=== PATIENT | male | born 1970 | race Hispanic/Latino ===

== ENCOUNTER 2024-03-21 03:22 | Observation (INO) | payer OTHER ==
[2024-03-21] VITALS (11 sets, daily range): BP systolic 122–184; BP diastolic 67–119; PULSE 70–88; RESP 15–20; TEMP 97.3–98.7; O2SAT 96–100
[~2024-03-21] VITALS: Ht 165.1 cm; Wt 112.5 kg
[~2024-03-21 03:22] MED LIST: ASPIRIN EC81 MG PO; LABETALOL HCL100 MG PO; NIFEDIPINE ER30 M1 PO; PEPCID20 MG PO; PRAVASTATIN SOD10 MG PO
[2024-03-21] MEDS: FUROSEMIDE INJ 10 MG/ML 4 ML VIAL IV STA (03:42)
[2024-03-21] MEDS: HYDRALAZINE HCL 20 MG/ML VIAL IV STA (03:42)
[2024-03-21 03:59] LABS: BASOPHILS % 0.6 % (0.0-1.0); EOSINOPHILS # (AUTO) 0.3 (0.0-0.4); EOSINOPHILS % 3.8 % (0.0-6.0); HEMATOCRIT 42.7 % (38.2-49.6); LYMPHOCYTES # (AUTO) 1.4 (1.0-3.2); LYMPHOCYTES % 21.9 % (18.0-39.1); MEAN CORPUSCULAR HEMOGLOBIN 31.6 pg (28-32); MEAN CORPUSCULAR HGB CONC 32.8 g/dL (31-35); MEAN CORPUSCULAR VOLUME 96.4 fL (81-99); MONOCYTES # (AUTO) 0.7 (0.2-0.8); NEUTROPHILS # (AUTO) 4.2 (2.1-6.9); NEUTROPHILS % 63.4 % (38.7-80.0); RED BLOOD COUNT 4.43 x10e6/uL (4.3-5.7); RED CELL DISTRIBUTION WIDTH 14.5 % (11.7-14.4); WHITE BLOOD COUNT 6.57 x10e3/uL (4.8-10.8)
[2024-03-21 04:03] LABS: PLATELET COUNT 89 x10e3/uL (140-360)
[2024-03-21 04:09] LABS: AMPHETAMINES SCREEN,URINE NEGATIVE (NEGATIVE); BENZODIAZEPINES SCREEN,URINE NEGATIVE (NEGATIVE); CANNABINOIDS SCREEN,URINE NEGATIVE (NEGATIVE); COCAINE SCREEN,URINE NEGATIVE (NEGATIVE); METHADONE SCREEN, URINE NEGATIVE (NEGATIVE); OPIATES SCREEN,URINE NEGATIVE (NEGATIVE); PHENCYCLIDINE SCREEN,URINE NEGATIVE (NEGATIVE)
[2024-03-21 04:22] LABS: LIPASE 69 U/L (8-78)
[2024-03-21 04:23] LABS: ETHANOL < 10.0 mg/dL (0.0-10.0)
[2024-03-21 04:24] LABS: ANION GAP 14.6 mmol/L (8-16); BILIRUBIN,TOTAL 0.8 mg/dL (0.2-1.2); CALCIUM 9.2 mg/dL (8.4-10.2); CREATININE, SERUM 1.08 mg/dL (0.72-1.25); POTASSIUM 3.6 mmol/L (3.5-5.1)
[2024-03-21 04:30] LABS: TROPONIN I 0.086 ng/mL (0-0.300)
[2024-03-21] MEDS ORDERED: SODIUM CHLORIDE FLUSH 10 ML SYR INJ PRN (05:00)
[2024-03-21] MEDS ORDERED: HYDROCHLOROTHIA25 MG (09:53)
[2024-03-21] MEDS ORDERED: HYDROCODONE/APAP 5MG-325MG TAB PO PRN (10:45)
[2024-03-21] MEDS ORDERED: ONDANSETRON HCL INJ 2MG/ML 2ML 2 MG/ML VIAL IV PRN (10:45)
[2024-03-21] MEDS ORDERED: BISACODYL 10 MG SUPP PR PRN (10:45)
[2024-03-21] MEDS: HYDROCHLOROTHIAZIDE 25 MG TAB PO SCH (11:26)
[2024-03-21] MEDS: LOSARTAN POTASSIUM 25 MG TAB PO SCH (11:27)
[2024-03-21] MEDS: ACETAMINOPHEN 325 MG TAB PO PRN (11:27)
[2024-03-21 11:49] LABS: BILIRUBIN,URINE NEGATIVE (NEGATIVE); CLARITY,URINE CLEAR (CLEAR); COLOR,URINE YELLOW (YELLOW); GLUCOSE, URINE NEGATIVE (NEGATIVE); KETONES,URINE NEGATIVE (NEGATIVE); LEUKOCYTE ESTERASE ,URINE TRACE (NEGATIVE); NITRITE,URINE NEGATIVE (NEGATIVE); PH,URINE 5.5 (5 - 7); PROTEIN,URINE DIPSTICK NEGATIVE (NEGATIVE); URINE UROBILINOGEN 0.2 mg/dL (0.2 - 1)
[2024-03-21 12:09] LABS: BACTERIA,URINE MODERATE /HPF; EPITHELIAL CELLS,URINE FEW /LPF; RBC,URINE 0-5 /HPF (0-5)
[2024-03-21] MEDS ORDERED: HYDROCHLOROTHIAZIDE 25 MG TAB PO SCH (12:45)
[2024-03-21 13:10] LABS: TROPONIN I 0.073 ng/mL (0-0.300)
[2024-03-21 13:51] LABS: AMPHETAMINES SCREEN,URINE NEGATIVE (NEGATIVE); BENZODIAZEPINES SCREEN,URINE NEGATIVE (NEGATIVE); CANNABINOIDS SCREEN,URINE NEGATIVE (NEGATIVE); COCAINE SCREEN,URINE NEGATIVE (NEGATIVE); METHADONE SCREEN, URINE NEGATIVE (NEGATIVE); OPIATES SCREEN,URINE NEGATIVE (NEGATIVE); PHENCYCLIDINE SCREEN,URINE NEGATIVE (NEGATIVE)
[2024-03-21] MEDS: FUROSEMIDE INJ 10 MG/ML 2 ML VIAL IV SCH (13:51)
[2024-03-21] MEDS ORDERED: ENOXAPARIN SOD INJ 40 MG/0.4 ML SYR SC SCH (17:00)
[2024-03-21] MEDS: CLONIDINE HCL 0.1 MG TAB PO PRN (18:07)
[2024-03-21] MEDS: CARVEDILOL 12.5 MG TAB PO SCH (18:07)
[2024-03-21] MEDS: HYDRALAZINE HCL 20 MG/ML VIAL IV PRN (20:47)
[2024-03-22 01:22] VITALS: BP 151/86; PULSE 72; RESP 20; TEMP 98.1; O2SAT 98
[2024-03-22 05:55] VITALS: BP 149/91; PULSE 68; RESP 20; TEMP 98.5; O2SAT 98
[2024-03-22 06:43] LABS: BASOPHILS % 0.6 % (0.0-1.0); EOSINOPHILS # (AUTO) 0.3 (0.0-0.4); EOSINOPHILS % 4.2 % (0.0-6.0); HEMATOCRIT 40.3 % (38.2-49.6); HEMOGLOBIN 13.8 g/dL (14.0-18.0); LYMPHOCYTES # (AUTO) 1.6 (1.0-3.2); LYMPHOCYTES % 25.4 % (18.0-39.1); MEAN CORPUSCULAR HEMOGLOBIN 31.7 pg (28-32); MEAN CORPUSCULAR HGB CONC 34.2 g/dL (31-35); MEAN CORPUSCULAR VOLUME 92.4 fL (81-99); MONOCYTES # (AUTO) 0.8 (0.2-0.8); MONOCYTES % 13.2 % (4.4-11.3); NEUTROPHILS # (AUTO) 3.6 (2.1-6.9); NEUTROPHILS % 56.4 % (38.7-80.0); PLATELET COUNT 92 x10e3/uL (140-360); RED BLOOD COUNT 4.36 x10e6/uL (4.3-5.7); RED CELL DISTRIBUTION WIDTH 14.8 % (11.7-14.4); WHITE BLOOD COUNT 6.38 x10e3/uL (4.8-10.8)
[2024-03-22 07:05] LABS: ALBUMIN 3.6 g/dL (3.5-5.0); ANION GAP 16.3 mmol/L (8-16); BILIRUBIN,TOTAL 0.5 mg/dL (0.2-1.2); CREATININE, SERUM 1.25 mg/dL (0.72-1.25); TOTAL PROTEIN 7.2 g/dL (6.5-8.1)
[2024-03-22 07:06] LABS: CHOL/HDL RATIO 3.3 (3.9-4.7)
[2024-03-22 07:09] LABS: POTASSIUM 3.3 mmol/L (3.5-5.1)
[2024-03-22 07:38] LABS: TROPONIN I 0.074 ng/mL (0-0.300)
[2024-03-22 07:43] VITALS: PULSE 79; RESP 17; O2SAT 98
[2024-03-22 08:57] VITALS: BP 154/104; PULSE 77; RESP 20; TEMP 97.9; O2SAT 98
[2024-03-22] MEDS ORDERED: LOSARTAN POTASSIUM 25 MG TAB PO SCH (09:00)
[2024-03-22] MEDS: SENNOSIDES 8.6 MG TAB PO SCH (09:03)
[2024-03-22] MEDS: DOCUSATE SODIUM 100 MG CAP PO SCH (09:03)
[2024-03-22] MEDS: SACUBITRIL49MG/VALSARTAN51MG 1 EACH TABLET PO SCH (09:03)
[2024-03-22] MEDS: SPIRONOLACTONE 25 MG TAB PO SCH (09:03)
[2024-03-22 10:25] VITALS: BP 154/104; PULSE 77; RESP 20; TEMP 97.9; O2SAT 98
[2024-03-22] MEDS ORDERED: K DUR10 MEQ PO (11:11)
[2024-03-22] MEDS ORDERED: CLONIDINE HCL0.1 MG PO (11:11)
[2024-03-22] MEDS ORDERED: ALDACTONE25 MG PO (11:11)
[2024-03-22] MEDS ORDERED: ENTRESTO 49 MG1 EACH PO (11:11)
[2024-03-22] MEDS ORDERED: FUROSEMIDE40 MG PO (11:11)
[2024-03-22] MEDS ORDERED: COREG12.5 MG PO (11:11)
[2024-03-22] MEDS: POTASSIUM CHLORIDE 20 MEQ TAB CR PO ONE (11:20)
[2024-03-23] MEDS ORDERED: FUROSEMIDE 40 MG TAB PO SCH (09:00)
[2024-03-23] MEDS ORDERED: POTASSIUM CHLORIDE 10MEQ EA PO SCH (09:00)
== END 2024-03-22 12:00 | disposition home or self-care (01) ==
LOC: ER 03:29 → ERHOLD 04:55 → MED/SURG2 06:10
PROVIDERS: ADMIT Internal Medicine; ATTEND Internal Medicine
DX: I11.0 Hypertensive heart disease with heart failure (principal); I50.43 Acute on chronic combined systolic (congestive) and diastolic (congestive) heart failure; I16.0 Hypertensive urgency; I42.0 Dilated cardiomyopathy; I34.0 Nonrheumatic mitral (valve) insufficiency; I45.10 Unspecified right bundle-branch block; D69.6 Thrombocytopenia, unspecified; K76.0 Fatty (change of) liver, not elsewhere classified; E66.01 Morbid (severe) obesity due to excess calories; Z68.41 Body mass index [BMI] 40.0-44.9, adult; Z91.148 Patient's other noncompliance with medication regimen for other reason; Z91.198 Patient's noncompliance with other medical treatment and regimen for other reason; Z79.82 Long term (current) use of aspirin; Z79.899 Other long term (current) drug therapy
CPT/HCPCS: 36415 ×2; 71045; 76705; 80053 ×2; 80061; 80307; 80320; 81001; 82550 ×2; 82607; 83036; 83690; 83735; 83880; 84443; 84484 ×2; 85025 ×2; 93005; 93306; 94799 ×2; 99284; G0378 ×2; J0360; J1940 ×3